=== PATIENT | female | born 1970 | race Caucasian/White ===

== ENCOUNTER 2021-10-26 08:32 | Day surgery (SDC) | payer MEDICAID, OTHER ==
[~2021-10-26 08:32] MED LIST: Midazolam 1 MG/ML 2 ML SDV ONE; Propofol 200 MG/20 ML SDV ONE; fentaNYL 100 MCG/2 ML SDV ONE
[2021-10-26] MEDS ORDERED: Sodium Chloride 0.9% 1,000 ML IV SCH (09:00)
[2021-10-26 11:07] VITALS: BP 121/66; PULSE 59
== END 2021-10-26 11:25 | disposition home or self-care (01) ==
LOC: JP.SDS 08:32
PROVIDERS: ATTEND Surgery
DX: Z12.11 Encounter for screening for malignant neoplasm of colon (principal)
CPT/HCPCS: 45378; J2250; J2704; J3010; J7030